=== PATIENT | female | born 1995 | race Caucasian/White ===

== ENCOUNTER → 2016-12-24 | Outpatient (CLI) | payer BC ==
[2016-12-24 14:51] LABS: CH 29.6; CHCM 33.8; HCT 35.2 % (34.0-46.0); HDW 2.47; MCHC 34.1 g/dL (31.0-37.0); Mean Platelet Volume 8.5; RBC 3.99 m/uL (3.80-5.40); RDW 14.1 % (11.5-15.5); WBC 12.7 k/uL (3.8-10.6)
== END | disposition home or self-care (01) ==
LOC: LABWHC1 13:36
PROVIDERS: ATTEND Obstetrics & Gynecology
DX: Z34.92 Encounter for supervision of normal pregnancy, unspecified, second trimester (principal); Z3A.00 Weeks of gestation of pregnancy not specified
CPT/HCPCS: 36415; 82950; 85027

== ENCOUNTER → 2017-03-02 | Outpatient (CLI) | payer BC ==
--- NOTE | 2017-03-02 13:13 | US ---
EXAMINATION TYPE: US OB anatomy transabd DATE OF EXAM: 03/02/2017 11:25 AM COMPARISON: NONE HISTORY: O36.63XO Large for dates 3rd trimester TECHNIQUE: Transabdominal (TA) EXAM MEASUREMENTS: GESTATIONAL AGE / DATING Physician Established: (35 weeks/4 days) EDC: 04/02/2017 Dates by LMP: (35 weeks/4 days) EDC: 04/02/2017 Dates by First Scan: not here Dates by Current Scan for: (35 weeks/2 days) EDC: 04/04/2017 SURVEY IUP: Single PLACENTA: Anterior PREVIA: No previa NOEL: 12.9 cm Normal CERVICAL LENGTH (transabdominal: norm > 3.0cm): 3.4 cm BIOMETRY PRESENTATION: Vertex LIE: Longitudinal with spine maternal right BPD: 8.7 cm 35 weeks / 1 day HC: 31.6 cm 35 weeks / 3 days AC: 32.3 cm 36 weeks / 1 day FL: 7.0 cm 35 weeks / 5 days ESTIMATED WEIGHT IN GRAMS: 2783.0 grams ESTIMATED WEIGHT IN LBS/OZ: 6 lbs. 2 oz. WEIGHT PERCENTAGE BASED ON ESTABLISHED DATE: 57.2 % HC/AC: 0.98 Normal FL/AC: 21.54 Normal HEART RATE: 137 bpm RHYTHM: Normal ANATOMY SEEN (within normal limits): * Lateral Vent (< 1 cm) 0.9 cm Choroid Plexus (bilateral) Cavus Septi Pellucidi Four Chamber Heart Stomach Situs Nose / Lips Diaphragm Kidneys (bilateral) Bladder Three Vessel Cord Longitudinal Spine Transverse Spine Legs (bilateral) ANATOMY NOT SEEN due to bone shadowing and crowding in 3rd trimester... * Cisterna Magna (< 1.1 cm) cm * Nuchal Fold (< 0.6 cm) cm * Cerebellum (varies with age) cm Outflow tracts: LVOT/RVOT Midline Falx as head is low in pelvis Cord Insert Arms (bilateral) Single, live, IUP,35 weeks/2 days, EDC: 04/04/2017, [id number] IMPRESSION: Single intrauterine gestation estimated at 35 weeks 2 days gestation based on the current ultrasound measurements. Some calculated EDC of 04/04/2017, Heart rate measured 137 bpm.
== END | disposition home or self-care (01) ==
LOC: RADUSWWP 10:47
PROVIDERS: ATTEND Obstetrics & Gynecology
DX: O36.63X0 Maternal care for excessive fetal growth, third trimester, not applicable or unspecified (principal); Z3A.35 35 weeks gestation of pregnancy
CPT/HCPCS: 76811

== ENCOUNTER 2017-03-31 05:56 | Inpatient (IN) | payer BC ==
[2017-03-31] MEDS ORDERED: CARBOPROST TROMETHAMINE 250 MCG/ML 1 ML AMP IM PRN (06:06)
[2017-03-31] MEDS ORDERED: LIDOCAINE 1% (PF) 10 MG/ML (30 ML SDV) SQ PRN (06:06)
[2017-03-31] MEDS ORDERED: OXYTOCIN 10 UNIT/ML 1 ML VIAL IM PRN (06:06)
[2017-03-31] MEDS ORDERED: METHYLERGONOVINE 0.2 MG/ML 1 ML AMP IM PRN (06:06)
[2017-03-31] MEDS ORDERED: TERBUTALINE 1 MG/ML VIAL SQ PRN (06:06)
[2017-03-31] MEDS: LACTATED RINGERS 1,000 ML IV SCH ×2 (06:09→09:38)
[2017-03-31] MEDS ORDERED: OXYTOCIN 20 UNITS/1000 ML NS 1,000 ML IV SCH ×2 (06:15→12:15)
[2017-03-31] MEDS ORDERED: LACTATED RINGERS 1,000 ML IV SCH (06:15)
[2017-03-31 06:23] LABS: Basophils % (A) 0 %; CH 29.4; CHCM 34.1; Eosinophils # (A) 0.1 k/uL (0-0.7); Eosinophils % (A) 1 %; HCT 35.9 % (34.0-46.0); HDW 2.39; HGB 12.4 gm/dL (11.4-16.0); Luc # (Auto) 0.16; Luc % (Auto) 1; Lymphocytes # (A) 2.1 k/uL (1.0-4.8); Lymphocytes % (A) 16 %; MCH 29.9 pg (25.0-35.0); MCHC 34.6 g/dL (31.0-37.0); MCV 86.5 fL (80.0-100.0); Mean Platelet Volume 8.4; Monocytes # (A) 0.5 k/uL (0-1.0); Monocytes % (A) 4 %; Neutrophils # (A) 9.8 k/uL (1.3-7.7); Neutrophils % (A) 78 %; RBC 4.15 m/uL (3.80-5.40); RDW 14.7 % (11.5-15.5); WBC 12.6 k/uL (3.8-10.6); WBC (Perox) 13.18
[2017-03-31 07:38] VITALS: BMI 30.9
[2017-03-31] MEDS ORDERED: BENZOCAINE SPRAY 57GM TOPICAL PRN (12:10)
[2017-03-31] MEDS ORDERED: SIMETHICONE 80 MG CHEWABLE PO PRN (12:10)
[2017-03-31] MEDS ORDERED: diphenhydrAMINE 50 MG CAP PO PRN (12:10)
[2017-03-31] MEDS ORDERED: diphenhydrAMINE 25 MG CAP PO PRN (12:10)
[2017-03-31] MEDS ORDERED: HYDROCORTISONE 2.5% RECTAL CREAM 30 GM TUBE RECTAL PRN (12:10)
[2017-03-31] MEDS ORDERED: ACETAMINOPHEN TAB 325 MG TAB PO PRN (12:10)
[2017-03-31] MEDS ORDERED: LANOLIN CREAM 5 GM TUBE TOPICAL PRN (12:10)
[2017-03-31] MEDS ORDERED: diphenhydrAMINE 50 MG/ML 1 ML VIAL IVP PRN ×2 (12:10)
[2017-03-31] MEDS ORDERED: ZOLPIDEM 5 MG TAB PO PRN (12:10)
[2017-03-31] MEDS ORDERED: Acetaminophen-Codeine 300-30mg TAB PO PRN ×2 (12:10)
[2017-03-31] MEDS ORDERED: WITCH HAZEL 1 EACH MED..PAD TOPICAL PRN (12:10)
--- NOTE | 2017-03-31 12:13 | P.HPOB ---
History of Present Illness H&P Date: 03/31/17 Chief Complaint: Induction of labor 21-year-old presents at 39 weeks and 5 days for induction of labor. She had a section with her last for hand presentation at 7 cm. She chose to do the and all risks and benefits and alternatives were discussed with the patient. Her cervix is 4-5 cm dilated, 80% effaced, -2 station. She is derrick every 5 minutes on her own. heart tones 130- 135 with moderate variability and reactive. Review of Systems All systems: negative Constitutional: Denies chills, Denies fever Eyes: denies blurred vision, denies pain Ears, nose, mouth and throat: Denies headache, Denies sore throat Cardiovascular: Denies chest pain, Denies shortness of breath Respiratory: Denies cough Gastrointestinal: Denies abdominal pain, Denies diarrhea, Denies nausea, Denies vomiting Genitourinary: Denies dysuria, Denies hematuria Musculoskeletal: Denies myalgias Integumentary: Denies pruritus, Denies rash Neurological: Denies numbness, Denies weakness Psychiatric: Denies anxiety, Denies depression Endocrine: Denies fatigue, Denies weight change Past Medical History Past Medical History: No Reported History Additional Past Medical History / Comment(s): Obstetrics history: First was a primary for hand presentation she did make it to 7 cm at that time. This is her second and she's had care with me since 7 weeks gestation. Blood type is O+, antibodies negative, rubella immune , RPR nonreactive, hepatitis B negative. Normal 1 hour glucose tolerance test and GBS negative. History of Any Multi-Drug Resistant Organisms: None Reported Past Surgical History: Section, Tonsillectomy Past Anesthesia/Blood Transfusion Reactions: No Reported Reaction Past Psychological History: Depression Additional Psychological History / Comment(s): hx ppd with last preg. was on rx for 4 mos. following Smoking Status: Never smoker Past Alcohol Use History: None Reported Past Drug Use History: None Reported - Past Family History Mother Family Medical History: No Reported History Medications and Allergies Home Medications Medication Instructions Recorded Confirmed Type Iuh-Fboe-Sorpr Acid 1 tab PO DAILY 05/15/14 03/31/17 History [-U Capsule] Allergies Allergy/AdvReac Type Severity Reaction Status Date / Time latex Allergy Rash/Hives Verified 03/31/17 06:05 Exam Osteopathic Statement: *. No significant issues noted on an osteopathic structural exam other than those noted in the History and Physical/Consult. - Vital Signs Vital signs: Vital Signs Temp Pulse Resp BP 03/31/17 07:30 96.3 F L 102 H 16 137/84 Intake and Output 03/30/17 03/31/17 03/31/17 22:59 06:59 14:59 Intake Total 1000 Balance 1000 Intake: IV 1000 Lactated Ringers 1,000 ml 1000 @ 125 mls/hr IV .Q8H [facility] Rx#:[id number] Other: Weight 83.915 kg 81.647 kg Patient Weight 04/01/17 06:59 Weight 81.647 kg Heart: Regular rate and rhythm Lungs: Clear to auscultation bilaterally Abdomen: Soft, nontender Extremities: Negative Homans sign Results Result Diagrams: 03/31/17 06:10 Abnormal Lab Results - Last 24 Hours (Table) 03/31/17 Range/Units 06:10 WBC 12.6 H (3.8-10.6) k/uL Neutrophils # 9.8 H (1.3-7.7) k/uL Assessment and Plan (1) Normal labor Status: Acute Plan: 1. Pitocin and amniotomy for induction of labor 2. Anticipate normal vaginal delivery
--- NOTE | 2017-03-31 12:15 | P.PROBDLV ---
Vaginal Delivery Note - . Vaginal Delivery Note: 21-year-old presents at 39 weeks and 5 days for induction of labor. Her cervix is 4-5 cm dilated, 90% effaced, and -2 station. She is derrick every 5 minutes. heart tones 130-135 with moderate variability and reactive. Amniotomy was performed at 8:00 AM, clear fluid noted. Pitocin had also been started. She progressed to complete at around 10:30 AM, pushed, delivered a viable female over midline episiotomy under epidural anesthesia. Head delivered OA, anterior shoulder delivered gentle downward traction followed by posterior shoulder and rest of body. Nose and mouth bulb suctioned, cord clamped and cut, placed on mother's abdomen. Apgars 8, 9 , weight 8 pounds. Placenta delivered spontaneously, intact with three-vessel cord. Vagina, cervix, perineum inspected. Second-degree midline episiotomy was repaired with 2-0, and 3-0 Vicryl. Bilateral periurethral lacerations were repaired with 3-0 Vicryl. Estimated blood loss 200 mL. Mother and baby in stable condition.
[2017-03-31] MEDS: IBUPROFEN 600 MG TAB PO PRN ×2 (12:49→17:53)
[2017-04-01] MEDS: IBUPROFEN 600 MG TAB PO PRN ×2 (03:30→08:50)
--- NOTE | 2017-04-01 06:21 | P.DS ---
Providers Date of admission: 03/31/17 05:56 Expected date of discharge: 04/01/17 Attending physician: Maria E Sethi Primary care physician: Caryn Doshi - Discharge Diagnosis(es) (1) Normal labor Current Visit: Yes Status: Resolved (2) Vaginal after Current Visit: Yes Status: Acute Hospital Course: Patient presented for induction of labor at 39 weeks and 6 days. She underwent a vaginal after . Her course was uncomplicated. She' ll be discharged home day #1 in stable condition to follow-up with me in 6 weeks. Plan - Discharge Summary New Discharge Prescriptions: Acetaminophen-Codeine 300-30mg [Tylenol w/codeine #3] 2 each PO Q6H PRN #30 tab PRN Reason: Moderate To Severe Pain Ibuprofen [Motrin] 600 mg PO Q6HR PRN #30 tab PRN Reason: Mild Pain Or Fever >= 100.5 Discharge Medication List [id number] Acid [-U Capsule] 1 tab PO DAILY 05/15/14 [ History] Acetaminophen-Codeine 300-30mg [Tylenol w/codeine #3] 2 each PO Q6H PRN #30 tab 04/01/17 [Rx] Ibuprofen [Motrin] 600 mg PO Q6HR PRN #30 tab 04/01/17 [Rx] Follow up Appointment(s)/Referral(s): Maria E Sethi DO [Doctor of Osteopathic Medicine] - 6 Weeks Discharge Disposition: HOME SELF-CARE
[2017-04-01 08:39] VITALS: BP 121/67; PULSE 86; RESP 18; TEMP 98.2
== END 2017-04-01 12:15 | disposition home or self-care (01) | DRG 775 ==
LOC: 4FBP 05:56
PROVIDERS: ADMIT Obstetrics & Gynecology; ATTEND Obstetrics & Gynecology
PROC: 10E0XZZ Delivery of Products of Conception, External Approach (ICD-10-PCS; principal; 2017-03-31)
PROC: 3E033VJ Introduction of Other Hormone into Peripheral Vein, Percutaneous Approach (ICD-10-PCS; principal; 2017-03-31)
PROC: 0UQMXZZ Repair Vulva, External Approach (ICD-10-PCS; principal; 2017-03-31)
PROC: 10907ZC Drainage of Amniotic Fluid, Therapeutic from Products of Conception, Via Natural or Artificial Opening (ICD-10-PCS; principal; 2017-03-31)
PROC: 0W8NXZZ Division of Female Perineum, External Approach (ICD-10-PCS; principal; 2017-03-31)
DX: O71.82 Other specified trauma to perineum and vulva (principal); Z37.0 Single live birth; Z3A.39 39 weeks gestation of pregnancy; O34.211 Maternal care for low transverse scar from previous cesarean delivery
CPT/HCPCS: 85025; 88307

== ENCOUNTER 2019-01-01 10:57 | Emergency (ER) | payer BC, OTHER ==
[2019-01-01 11:14] VITALS: RESP 18
[2019-01-01 11:48] LABS: Glucose,Whole Blood 93 mg/dL (75-99)
[2019-01-01] MEDS ORDERED: SODIUM CHLORIDE 0.9% 1,000 ML IV STA ×2 (11:50)
[2019-01-01] MEDS ORDERED: ACETAMINOPHEN TAB 500 MG TAB PO STA (11:52)
--- NOTE | 2019-01-01 11:57 | ED ---
Syncope HPI - General Chief Complaint: Dizziness Stated Complaint: tunnel vision/tongue numbness Time Seen by Provider: 01/01/19 11:16 Source: patient, RN notes reviewed, old records reviewed Mode of arrival: ambulatory Limitations: no limitations - History of Present Illness Initial Comments: Patient is a 23-year-old female presents emergency department today with complaints of episodes of dizziness tunnel vision and left-sided facial numbness and tingling. She also complained of left arm numbness tingling and weakness. Patient states the symptoms started when she was driving to work today. They went away after about 10 minutes. Patient reports surgeries for dehydration. She denies any chest pain shortness of breath. She's had no recent nausea or vomiting. Patient states that when she arrived here she had another episode of left-sided facial numbness. It has 1 away at this time. Patient complains of a headache 4 out of 10. She denies any falls or head trauma. - Related Data Home Medications Medication Instructions Recorded Confirmed Larissia 1 tab PO HS 01/01/19 01/01/19 Allergies Allergy/AdvReac Type Severity Reaction Status Date / Time latex Allergy Rash/Hives Verified 01/01/19 11:35 Review of Systems ROS Statement: Those systems with pertinent positive or pertinent negative responses have been documented in the HPI. ROS Other: All systems not noted in ROS Statement are negative. Past Medical History Past Medical History: No Reported History Additional Past Medical History / Comment(s): Obstetrics history: First was a primary for hand presentation she did make it to 7 cm at that time. This is her second and she's had care with me since 7 weeks gestation. Blood type is O+, antibodies negative, rubella immune , RPR nonreactive, hepatitis B negative. Normal 1 hour glucose tolerance test and GBS negative. History of Any Multi-Drug Resistant Organisms: None Reported Past Surgical History: Section, Tonsillectomy Past Anesthesia/Blood Transfusion Reactions: No Reported Reaction Past Psychological History: Depression Smoking Status: Never smoker Past Alcohol Use History: None Reported, Rare Past Drug Use History: None Reported - Past Family History Mother Family Medical History: No Reported History General Exam - General Exam Comments Initial Comments: Alert and oriented 23-year-old female in no distress. Limitations: no limitations General appearance: alert, in no apparent distress Head exam: Present: atraumatic, normocephalic, normal inspection Eye exam: Present: normal appearance, PERRL, EOMI. Absent: scleral icterus, conjunctival injection, periorbital swelling ENT exam: Present: normal exam Neck exam: Present: normal inspection. Absent: tenderness, meningismus, lymphadenopathy Respiratory exam: Present: normal lung sounds bilaterally. Absent: respiratory distress, wheezes, rales, rhonchi, stridor Cardiovascular Exam: Present: regular rate, normal rhythm, normal heart sounds. Absent: systolic murmur, diastolic murmur, rubs, gallop, clicks GI/Abdominal exam: Present: soft, normal bowel sounds. Absent: distended, tenderness, guarding, rebound, rigid Extremities exam: Present: normal inspection, full ROM, normal capillary refill. Absent: tenderness, pedal edema, joint swelling, calf tenderness Back exam: Present: normal inspection Neurological exam: Present: alert, oriented X3, CN II-XII intact Expanded Patient oriented to: Present: person, place, time Speech: Present: fluid speech Cranial nerves: EOM's Intact: Normal, Gag Reflex: Normal, Tongue Deviation: Normal, Facial Sensation: Normal Cerebellar function: Finger to Nose: Normal Upper motor neuron: Pronator Drift: Normal Sensory exam: Upper Extremity Light Touch: Normal, Lower Extremity Light Touch: Normal Motor strength exam: RUE: 5, LUE: 5, RLE: 5, LLE: 5 Eye Response: (4) open spontaneously Motor Response: (6) obeys commands Verbal Response: (5) oriented Gurvinder Total: 15 Psychiatric exam: Present: normal affect, normal mood Skin exam: Present: warm, dry, intact, normal color. Absent: rash Course Vital Signs 01/01/19 01/01/19 11:11 13:29 Temperature 99.0 F Pulse Rate 90 77 Respiratory 18 18 Rate Blood Pressure 138/76 138/59 O2 Sat by Pulse 100 98 Oximetry Medical Decision Making - Medical Decision Making Patient is a 23-year-old female process returns today with chief complaint of headache, paresthesias on her hand. She also complains some episodes of tunnel vision. At the same Patient has no neurological deficits. She reports the symptoms are transient. She is complaining of 4 out of 10 headache. At this time patient's labwork was unremarkable. EKG and CT of the brain and chest x- ray are all normal. Discussed possibility of complex migraine versus given T early TIA concerns. Patient was offered transfer for neurological workup and states she will be worked up outpatient only. As discussed that Patient have any returning symptoms that she should return for reevaluation. Patient understands treatment plan will comply. - Lab Data Result diagrams: 01/01/19 11:45 01/01/19 11:45 Lab Results 01/01/19 01/01/19 01/01/19 Range/Units 11:45 11:45 11:45 WBC 6.9 (3.8-10.6) k/uL RBC 4.83 (3.80-5.40) m/uL Hgb 11.9 (11.4-16.0) gm/dL Hct 36.4 (34.0-46.0) % MCV 75.4 L (80.0-100.0) fL MCH 24.6 L (25.0-35.0) pg MCHC 32.7 (31.0-37.0) g/dL RDW 15.5 (11.5-15.5) % Plt Count 242 (150-450) k/uL Neutrophils % 67 % Lymphocytes % 25 % Monocytes % 4 % Eosinophils % 2 % Basophils % 1 % Neutrophils # 4.6 (1.3-7.7) k/uL Lymphocytes # 1.7 (1.0-4.8) k/uL Monocytes # 0.3 (0-1.0) k/uL Eosinophils # 0.1 (0-0.7) k/uL Basophils # 0.0 (0-0.2) k/uL Microcytosis Slight PT 10.2 (9.0-12.0) sec INR 0.9 (<1.2) APTT 26.0 (22.0-30.0) sec Sodium 141 (137-145) mmol/L Potassium 4.0 (3.5-5.1) mmol/L Chloride 105 (98-107) mmol/L Carbon Dioxide 24 (22-30) mmol/L Anion Gap 12 mmol/L BUN 11 (7-17) mg/dL Creatinine 0.66 (0.52-1.04) mg/dL Est GFR (CKD-EPI)AfAm >90 (>60 ml/min/1.73 sqM) Est GFR (CKD-EPI)NonAf >90 (>60 ml/min/1.73 sqM) Glucose 91 (74-99) mg/dL POC Glucose (mg/dL) (75-99) mg/dL POC Glu [employer] ID Calcium 10.2 (8.4-10.2) mg/dL Total Bilirubin 0.7 (0.2-1.3) mg/dL AST 18 (14-36) U/L ALT 26 (9-52) U/L Alkaline Phosphatase 92 (38-126) U/L Troponin I (0.000-0.034) ng/mL Total Protein 8.1 (6.3-8.2) g/dL Albumin 4.6 (3.5-5.0) g/dL Urine Color Urine Appearance (Clear) Urine pH (5.0-8.0) Ur Specific [place] (1.001-1.035) Urine Protein (Negative) Urine Glucose (UA) (Negative) Urine Ketones (Negative) Urine Blood (Negative) Urine Nitrite (Negative) Urine Bilirubin (Negative) Urine Urobilinogen (<2.0) mg/dL Ur Leukocyte Esterase (Negative) Urine RBC (0-5) /hpf Urine WBC (0-5) /hpf Ur Squamous Epith Cells (0-4) /hpf Urine Mucus (None) /hpf Urine HCG, Qual (Not Detectd) 01/01/19 01/01/19 01/01/19 Range/Units 11:45 11:45 11:45 WBC (3.8-10.6) k/uL RBC (3.80-5.40) m/uL Hgb (11.4-16.0) gm/dL Hct (34.0-46.0) % MCV (80.0-100.0) fL MCH (25.0-35.0) pg MCHC (31.0-37.0) g/dL RDW (11.5-15.5) % Plt Count (150-450) k/uL Neutrophils % % Lymphocytes % % Monocytes % % Eosinophils % % Basophils % % Neutrophils # (1.3-7.7) k/uL Lymphocytes # (1.0-4.8) k/uL Monocytes # (0-1.0) k/uL Eosinophils # (0-0.7) k/uL Basophils # (0-0.2) k/uL Microcytosis PT (9.0-12.0) sec INR (<1.2) APTT (22.0-30.0) sec Sodium (137-145) mmol/L Potassium (3.5-5.1) mmol/L Chloride (98-107) mmol/L Carbon Dioxide (22-30) mmol/L Anion Gap mmol/L BUN (7-17) mg/dL Creatinine (0.52-1.04) mg/dL Est GFR (CKD-EPI)AfAm (>60 ml/min/1.73 sqM) Est GFR (CKD-EPI)NonAf (>60 ml/min/1.73 sqM) Glucose (74-99) mg/dL POC Glucose (mg/dL) (75-99) mg/dL POC Glu [employer] ID Calcium (8.4-10.2) mg/dL Total Bilirubin (0.2-1.3) mg/dL AST (14-36) U/L ALT (9-52) U/L Alkaline Phosphatase (38-126) U/L Troponin I <0.012 (0.000-0.034) ng/mL Total Protein (6.3-8.2) g/dL Albumin (3.5-5.0) g/dL Urine Color Light Yellow Urine Appearance Cloudy H (Clear) Urine pH 6.5 (5.0-8.0) Ur Specific [place] 1.005 (1.001-1.035) Urine Protein Negative (Negative) Urine Glucose (UA) Negative (Negative) Urine Ketones Negative (Negative) Urine Blood Negative (Negative) Urine Nitrite Negative (Negative) Urine Bilirubin Negative (Negative) Urine Urobilinogen <2.0 (<2.0) mg/dL Ur Leukocyte Esterase Moderate H (Negative) Urine RBC 2 (0-5) /hpf Urine WBC 14 H (0-5) /hpf Ur Squamous Epith Cells 18 H (0-4) /hpf Urine Mucus Occasional H (None) /hpf Urine HCG, Qual Not Detected (Not Detectd) 01/01/19 Range/Units 11:47 WBC (3.8-10.6) k/uL RBC (3.80-5.40) m/uL Hgb (11.4-16.0) gm/dL Hct (34.0-46.0) % MCV (80.0-100.0) fL MCH (25.0-35.0) pg MCHC (31.0-37.0) g/dL RDW (11.5-15.5) % Plt Count (150-450) k/uL Neutrophils % % Lymphocytes % % Monocytes % % Eosinophils % % Basophils % % Neutrophils # (1.3-7.7) k/uL Lymphocytes # (1.0-4.8) k/uL Monocytes # (0-1.0) k/uL Eosinophils # (0-0.7) k/uL Basophils # (0-0.2) k/uL Microcytosis PT (9.0-12.0) sec INR (<1.2) APTT (22.0-30.0) sec Sodium (137-145) mmol/L Potassium (3.5-5.1) mmol/L Chloride (98-107) mmol/L Carbon Dioxide (22-30) mmol/L Anion Gap mmol/L BUN (7-17) mg/dL Creatinine (0.52-1.04) mg/dL Est GFR (CKD-EPI)AfAm (>60 ml/min/1.73 sqM) Est GFR (CKD-EPI)NonAf (>60 ml/min/1.73 sqM) Glucose (74-99) mg/dL POC Glucose (mg/dL) 93 (75-99) mg/dL POC Glu [employer] Kaylee Ascencio Calcium (8.4-10.2) mg/dL Total Bilirubin (0.2-1.3) mg/dL AST (14-36) U/L ALT (9-52) U/L Alkaline Phosphatase (38-126) U/L Troponin I (0.000-0.034) ng/mL Total Protein (6.3-8.2) g/dL Albumin (3.5-5.0) g/dL Urine Color Urine Appearance (Clear) Urine pH (5.0-8.0) Ur Specific [place] (1.001-1.035) Urine Protein (Negative) Urine Glucose (UA) (Negative) Urine Ketones (Negative) Urine Blood (Negative) Urine Nitrite (Negative) Urine Bilirubin (Negative) Urine Urobilinogen (<2.0) mg/dL Ur Leukocyte Esterase (Negative) Urine RBC (0-5) /hpf Urine WBC (0-5) /hpf Ur Squamous Epith Cells (0-4) /hpf Urine Mucus (None) /hpf Urine HCG, Qual (Not Detectd) 01/01/19 13:48 EKG performed at 12:00 shows normal sinus rhythm with sinus arrhythmia, ventricular rate of 87 bpm.. Intervals 142 ms. QRS duration 80 ms. QT QTc is 350/421 ms. No evidence of ST elevation or T-wave inversions. - Radiology Data Radiology results: report reviewed X-ray was reviewed and normal. CT of brain same for any acute disease. Disposition Clinical Impression: Headache, Paresthesia Disposition: HOME SELF-CARE Condition: Good Instructions (If sedation given, give patient instructions): Acute Headache (ED ) Additional Instructions: Patient is advised to follow-up with primary care physician and neurology. Return to the emergency department if any alarming signs or symptoms occur. Is patient prescribed a controlled substance at d/c from ED?: No Referrals: None,Stated [REFERRING] - 1-2 days Carline Kidd MD [STAFF PHYSICIAN] - 1-2 days Janee Davalos MD [Medical Doctor] - 1-2 days Time of Disposition: 14:03
[2019-01-01 12:16] LABS: Basophils % (A) 1 %; Eosinophils # (A) 0.1 k/uL (0-0.7); Eosinophils % (A) 2 %; HCT 36.4 % (34.0-46.0); HGB 11.9 gm/dL (11.4-16.0); Lymphocytes # (A) 1.7 k/uL (1.0-4.8); Lymphocytes % (A) 25 %; MCH 24.6 pg (25.0-35.0); MCHC 32.7 g/dL (31.0-37.0); MCV 75.4 fL (80.0-100.0); Mean Platelet Volume 7.5; Microcytosis Slight; Monocytes # (A) 0.3 k/uL (0-1.0); Monocytes % (A) 4 %; Neutrophils # (A) 4.6 k/uL (1.3-7.7); Neutrophils % (A) 67 %; Platelet Count 242 k/uL (150-450); RBC 4.83 m/uL (3.80-5.40); RDW 15.5 % (11.5-15.5); WBC 6.9 k/uL (3.8-10.6)
--- NOTE | 2019-01-01 12:24 | XR ---
EXAMINATION TYPE: XR chest 2V DATE OF EXAM: 01/01/2019 COMPARISON: None INDICATION: Altered mental status left-sided numbness TECHNIQUE: Frontal and lateral views of the chest are obtained. FINDINGS: The heart size is normal. The pulmonary vasculature is normal. The lungs are clear. IMPRESSION: 1. No acute pulmonary process.
[2019-01-01 12:25] LABS: ALT 26 U/L (9-52); AST 18 U/L (14-36); Albumin 4.6 g/dL (3.5-5.0); Alkaline Phosphatase 92 U/L (38-126); Anion Gap 12 mmol/L; Blood Urea Nitrogen 11 mg/dL (7-17); Calcium 10.2 mg/dL (8.4-10.2); Carbon Dioxide 24 mmol/L (22-30); Chloride 105 mmol/L (98-107); Glucose 91 mg/dL (74-99); Sodium 141 mmol/L (137-145); Total Bilirubin 0.7 mg/dL (0.2-1.3); Total Protein 8.1 g/dL (6.3-8.2)
[2019-01-01 12:28] LABS: Appearance,Urine Cloudy (Clear); Bilirubin,Urine Negative (Negative); Blood,Urine Negative (Negative); Color,Urine Light Yellow; Glucose,Urine (UA) Negative (Negative); Ketones,Urine Negative (Negative); Leukocyte Esterase,Urine Moderate (Negative); Mucus,Urine Occasional /hpf; Nitrite,Urine Negative (Negative); PH, Urine 6.5 (5.0-8.0); Protein,Urine Negative (Negative); RBC,Urine 2 /hpf (0-5); Specific Gravity,Urine 1.005 (1.001-1.035); Squamous Epithelial Cell,Urine 18 /hpf (0-4); Urobilinogen,Urine <2.0 mg/dL (<2.0); WBC,Urine 14 /hpf (0-5)
[2019-01-01 12:38] LABS: INR 0.9 (<1.2); Prothrombin Time 10.2 sec (9.0-12.0)
--- NOTE | 2019-01-01 13:04 | CT ---
EXAMINATION TYPE: CT brain wo con DATE OF EXAM: 01/01/2019 COMPARISON: None. HISTORY: Headache, tunnel vision and left sided facial numbness. CT DLP: 1091.4 mGycm. Automated Exposure Control for Dose Reduction was Utilized. TECHNIQUE: CT scan of the head is performed without contrast. FINDINGS: There is no acute intracranial hemorrhage, mass effect, or midline shift identified. The ventricles and sulci are within normal limits in size. Olivera-white matter differentiation is preserve d. Air-fluid level right maxillary sinus is partially imaged. Remainder paranasal sinuses are clear. Globes are intact bilaterally. IMPRESSION: No acute intracranial hemorrhage, mass effect, or midline shift is seen.
[2019-01-01 13:31] VITALS: BP 138/59; PULSE 77
[2019-01-01 14:09] VITALS: TEMP 98.9
== END 2019-01-01 14:10 | disposition home or self-care (01) ==
LOC: EC 10:57
DX: R51 Headache (principal); R20.2 Paresthesia of skin; R42 Dizziness and giddiness; R53.1 Weakness; Z79.3 Long term (current) use of hormonal contraceptives; Z91.040 Latex allergy status
CPT/HCPCS: 36415; 70450; 71046; 80053; 81001; 81025; 84484; 85025; 85610; 85730; 93005; 96360; 96361; 99285

== ENCOUNTER 2022-05-15 13:52 | Emergency (ER) | payer OTHER ==
[2022-05-15 14:08] VITALS: TEMP 97.8
[2022-05-15] MEDS ORDERED: ACETAMINOPHEN TAB 500 MG TAB PO STA (14:49)
[2022-05-15 15:17] LABS: Basophils # (A) 0.1 k/uL (0-0.2); Basophils % (A) 1 %; Eosinophils # (A) 0.1 k/uL (0-0.7); Eosinophils % (A) 1 %; HCT 32.2 % (34.0-46.0); HGB 10.7 gm/dL (11.4-16.0); Lymphocytes # (A) 1.5 k/uL (1.0-4.8); Lymphocytes % (A) 14 %; MCH 25.9 pg (25.0-35.0); MCHC 33.3 g/dL (31.0-37.0); MCV 77.7 fL (80.0-100.0); Mean Platelet Volume 7.7; Monocytes # (A) 0.5 k/uL (0-1.0); Monocytes % (A) 4 %; Neutrophils # (A) 8.4 k/uL (1.3-7.7); Neutrophils % (A) 79 %; Platelet Count 206 k/uL (150-450); RBC 4.14 m/uL (3.80-5.40); RDW 15.1 % (11.5-15.5); WBC 10.6 k/uL (3.8-10.6)
[2022-05-15 15:25] LABS: ALT 14 U/L (4-34); AST 18 U/L (14-36); African American GFR (CKD) >90 (>60 ml/min/1.73 sqM); Albumin 4.6 g/dL (3.5-5.0); Alkaline Phosphatase 78 U/L (38-126); Anion Gap 9 mmol/L; Blood Urea Nitrogen 7 mg/dL (7-17); Calcium 9.6 mg/dL (8.4-10.2); Carbon Dioxide 24 mmol/L (22-30); Chloride 101 mmol/L (98-107); Glucose 98 mg/dL (74-99); Non-African American GFR(CKD) >90 (>60 ml/min/1.73 sqM); Potassium 3.8 mmol/L (3.5-5.1); Sodium 134 mmol/L (137-145); Total Bilirubin 0.6 mg/dL (0.2-1.3); Total Protein 7.6 g/dL (6.3-8.2)
[2022-05-15 15:29] LABS: Appearance,Urine Cloudy (Clear); Bilirubin,Urine Negative (Negative); Blood,Urine Negative (Negative); Color,Urine Yellow; Glucose,Urine (UA) Negative (Negative); Ketones,Urine Negative (Negative); Leukocyte Esterase,Urine Moderate (Negative); Mucus,Urine Rare /hpf; Nitrite,Urine Negative (Negative); PH, Urine 5.5 (5.0-8.0); Protein,Urine Negative (Negative); RBC,Urine 2 /hpf (0-5); Specific Gravity,Urine 1.017 (1.001-1.035); Squamous Epithelial Cell,Urine 5 /hpf (0-4); Urobilinogen,Urine <2.0 mg/dL (<2.0); WBC,Urine 10 /hpf (0-5)
--- NOTE | 2022-05-15 16:16 | US ---
EXAMINATION TYPE: Transabdominal DATE OF EXAM: 05/15/2022 4:00 PM COMPARISON: NONE CLINICAL HISTORY: Left sided pelvic pain, 8 weeks . EXAM PERFORMED: Transabdominal (TA) EXAM MEASUREMENTS: GESTATIONAL AGE / DATING Physician Established: (8 weeks/3 days) EDC: 12/22/2022 Dates by LMP: 03/17/2022 (8 weeks/3 days) EDC: 12/22/2022 Dates by First Scan: No previous this is first scan Dates by Current Scan for: (8 weeks/0 days) EDC: 12/25/2022 MATERNAL ANATOMY Uterus: 11.3 X 7.2 X 7.1 CM Right Ovary: 4.8 X 2.8 X 3.3 CM Left Ovary: 3.7 X 2.9 X 3.1 CM Post CDS / Adnexa: no free fluid Presence of free fluid: GESTATION / SURVEY CRL: 1.6 cm (8 weeks/0 days) Yolk Sac (normal less than 6mm): 0.3 cm Heart Rate: 150 bpm Rhythm: Normal IUP: Viable IUP Date of LMP: 03/17/2022 Beta HcG (if available): not available Viable IUP that correlates with LMP. IMPRESSION: Ultrasound gestational age is 8 weeks. No complicating process seen.
--- NOTE | 2022-05-15 16:23 | ED ---
Abdominal Pain HPI - General Chief Complaint: Abdominal Pain Stated Complaint: 8 Weeks Preg. Left Side Abdominal pain Time Seen by Provider: 05/15/22 14:41 Source: patient, RN notes reviewed Mode of arrival: ambulatory Limitations: no limitations - History of Present Illness Initial Comments: This is a 26-year-old female who presents to the emergency department with left- sided pelvic pain. Patient is 8 weeks and is . No history of complications. Denies any vaginal bleeding or discharge. She has not had any issues with morning sickness. Pain started last night. She currently sees Dr. Sethi, and saw her last week. At that time she had blood work and an ultrasound which demonstrated no irregularities. Denies any fevers, chills, sore throat, cough, dyspnea, chest pain, palpitations, nausea, vomiting, diarrhea, back pain, or headaches. MD Complaint: abdominal pain Onset/Timin -: days(s) Location: [facility] - Related Data Home Medications Medication Instructions Recorded Confirmed Vit No.179/Iron/Folic 1 tab PO DAILY 05/15/22 05/15/22 [ Tablet] Previous Rx's Medication Instructions Recorded Cephalexin [Keflex] 500 mg PO Q12HR 3 Days #6 cap 05/15/22 Allergies Allergy/AdvReac Type Severity Reaction Status Date / Time latex Allergy Rash/Hives Verified 05/15/22 16:23 Review of Systems ROS Statement: Those systems with pertinent positive or pertinent negative responses have been documented in the HPI. ROS Other: All systems not noted in ROS Statement are negative. Past Medical History Past Medical History: No Reported History Additional Past Medical History / Comment(s): Obstetrics history: First was a primary for hand presentation she did make it to 7 cm at that time. This is her second and she's had care with me since 7 weeks gestation. Blood type is O+, antibodies negative, rubella immune, RPR nonreactive, hepatitis B negative. Normal 1 hour glucose tolerance test and GBS negative. History of Any Multi-Drug Resistant Organisms: None Reported Past Surgical History: Section, Tonsillectomy Past Anesthesia/Blood Transfusion Reactions: No Reported Reaction Past Psychological History: Depression Past Alcohol Use History: None Reported, Rare Past Drug Use History: None Reported - Past Family History Mother Family Medical History: No Reported History General Exam Limitations: no limitations General appearance: alert, in no apparent distress Respiratory exam: Present: normal lung sounds bilaterally. Absent: respiratory distress, wheezes, rales, rhonchi, stridor Cardiovascular Exam: Present: regular rate, normal rhythm, normal heart sounds. Absent: systolic murmur, diastolic murmur, rubs, gallop, clicks GI/Abdominal exam: Present: normal bowel sounds Neurological exam: Present: alert, oriented X3, CN II-XII intact Psychiatric exam: Present: normal affect, normal mood Skin exam: Present: warm, dry, intact, normal color. Absent: rash Course Vital Signs 05/15/22 05/15/22 14:05 17:26 Temperature 97.8 F Pulse Rate 85 74 Respiratory 16 18 Rate Blood Pressure 135/87 124/82 O2 Sat by Pulse 100 96 Oximetry Medical Decision Making - Medical Decision Making This is a 26-year-old female who presents to the emergency department for left- sided pelvic pain. Lab work was nonactionable. Obstetrics ultrasound revealed a viable intrauterine . She does have some white blood cells in her urine, will treat her with a prescription for Keflex. She was also given a dose of Tylenol and IV fluids. Patient feels stable for discharge home and will follow-up with Dr. Sethi as scheduled. Return precautions reviewed in depth, the patient is instructed to return to the emergency department with any new, worsening, or concerning symptoms. Patient verbalized understanding. This case was discussed in detail with the attending ED physician. Presentation, findings, and treatment plan discussed in detail as well. - Lab Data Result diagrams: 05/15/22 15:05 05/15/22 15:05 Lab Results 05/15/22 05/15/22 05/15/22 Range/Units 15:05 15:05 15:05 WBC 10.6 (3.8-10.6) k/uL RBC 4.14 (3.80-5.40) m/uL Hgb 10.7 L (11.4-16.0) gm/dL Hct 32.2 L (34.0-46.0) % MCV 77.7 L (80.0-100.0) fL MCH 25.9 (25.0-35.0) pg MCHC 33.3 (31.0-37.0) g/dL RDW 15.1 (11.5-15.5) % Plt Count 206 (150-450) k/uL MPV 7.7 Neutrophils % 79 % Lymphocytes % 14 % Monocytes % 4 % Eosinophils % 1 % Basophils % 1 % Neutrophils # 8.4 H (1.3-7.7) k/uL Lymphocytes # 1.5 (1.0-4.8) k/uL Monocytes # 0.5 (0-1.0) k/uL Eosinophils # 0.1 (0-0.7) k/uL Basophils # 0.1 (0-0.2) k/uL Sodium 134 L (137-145) mmol/L Potassium 3.8 (3.5-5.1) mmol/L Chloride 101 (98-107) mmol/L Carbon Dioxide 24 (22-30) mmol/L Anion Gap 9 mmol/L BUN 7 (7-17) mg/dL Creatinine 0.61 (0.52-1.04) mg/dL Est GFR (CKD-EPI)AfAm >90 (>60 ml/min/1.73 sqM) Est GFR (CKD-EPI)NonAf >90 (>60 ml/min/1.73 sqM) Glucose 98 (74-99) mg/dL Calcium 9.6 (8.4-10.2) mg/dL Total Bilirubin 0.6 (0.2-1.3) mg/dL AST 18 (14-36) U/L ALT 14 (4-34) U/L Alkaline Phosphatase 78 (38-126) U/L Total Protein 7.6 (6.3-8.2) g/dL Albumin 4.6 (3.5-5.0) g/dL HCG, Quant 71821.8 mIU/mL Urine Color Yellow Urine Appearance Cloudy H (Clear) Urine pH 5.5 (5.0-8.0) Ur Specific [place] 1.017 (1.001-1.035) Urine Protein Negative (Negative) Urine Glucose (UA) Negative (Negative) Urine Ketones Negative (Negative) Urine Blood Negative (Negative) Urine Nitrite Negative (Negative) Urine Bilirubin Negative (Negative) Urine Urobilinogen <2.0 (<2.0) mg/dL Ur Leukocyte Esterase Moderate H (Negative) Urine RBC 2 (0-5) /hpf Urine WBC 10 H (0-5) /hpf Ur Squamous Epith Cells 5 H (0-4) /hpf Urine Mucus Rare H (None) /hpf - Radiology Data Radiology results: report reviewed, image reviewed Disposition Clinical Impression: Pelvic pain affecting in first trimester, antepartum, Asymptomatic bacteriuria Disposition: HOME SELF-CARE Instructions (If sedation given, give patient instructions): Abdominal Pain in (ED) Additional Instructions: Return to the emergency department for any new, worsening, or concerning symptoms. Take the Keflex as prescribed for [address] Sethi's office on Tuesday for a follow up appointment. Prescriptions: Cephalexin [Keflex] 500 mg PO Q12HR 3 Days #6 cap Is patient prescribed a controlled substance at d/c from ED?: No Referrals: Caryn Doshi MD [Primary Care Provider] - 1-2 days
[2022-05-15 16:44] LABS: HCG,Quantitative Serum 96106.8 mIU/mL
[2022-05-15 17:27] VITALS: BP 124/82; PULSE 74; RESP 18
== END 2022-05-15 17:27 | disposition home or self-care (01) ==
LOC: EC 13:52
DX: O26.91 Pregnancy related conditions, unspecified, first trimester (principal); R10.2 Pelvic and perineal pain; Z91.040 Latex allergy status
CPT/HCPCS: 36415; 76801; 80053; 81001; 84702; 85025; 99284

== ENCOUNTER 2022-12-03 10:40 | Outpatient (CLI) | payer OTHER ==
[2022-12-03 12:09] LABS: Appearance,Urine Cloudy (Clear); Bilirubin,Urine Negative (Negative); Blood,Urine Negative (Negative); Color,Urine Yellow; Glucose,Urine (UA) Negative (Negative); Ketones,Urine Negative (Negative); Leukocyte Esterase,Urine Large (Negative); Mucus,Urine Many /hpf; Nitrite,Urine Negative (Negative); Protein,Urine 1+ (Negative); RBC,Urine <1 /hpf (0-5); Specific Gravity,Urine 1.025 (1.001-1.035); Squamous Epithelial Cell,Urine 17 /hpf (0-4); Urobilinogen,Urine <2.0 mg/dL (<2.0); WBC,Urine 23 /hpf (0-5)
[2022-12-03 12:23] LABS: Creatinine,Urine Random 173.1 mg/dL
[2022-12-03 13:02] LABS: Basophils % (A) 0 %; Eosinophils # (A) 0.1 k/uL (0-0.7); Eosinophils % (A) 1 %; HGB 10.5 gm/dL (11.4-16.0); Lymphocytes # (A) 1.6 k/uL (1.0-4.8); Lymphocytes % (A) 15 %; MCH 27.9 pg (25.0-35.0); MCV 82.2 fL (80.0-100.0); Mean Platelet Volume 9.1; Monocytes # (A) 0.5 k/uL (0-1.0); Monocytes % (A) 4 %; Neutrophils # (A) 8.6 k/uL (1.3-7.7); Neutrophils % (A) 79 %; Platelet Count 161 k/uL (150-450); RBC 3.77 m/uL (3.80-5.40); RDW 14.1 % (11.5-15.5); WBC 10.8 k/uL (3.8-10.6)
[2022-12-03 13:31] LABS: ALT 14 U/L (4-34); AST 16 U/L (14-36); African American GFR (CKD) >90 (>60 ml/min/1.73 sqM); Blood Urea Nitrogen 8 mg/dL (7-17); LDH 335 U/L (313-618); Non-African American GFR(CKD) >90 (>60 ml/min/1.73 sqM); Uric Acid 5.3 mg/dL (3.7-7.4)
[2022-12-03 13:55] VITALS: BP 142/83; PULSE 100; RESP 16; TEMP 97.3
--- NOTE | 2022-12-07 02:08 | P.MSEPDOC ---
Presenting Problems - Arrival Data Date of Arrival on Unit: 12/03/22 Time of Arrival on Unit: 10:40 Mode of Transport: Ambulatory - Complaint OB-Reason for Admission/Chief Complaint: Rule Out SROM Medical History - Information : 3 Para: 2 Term: 1 : 1 Abortions: Spontaneous or Elective: 0 Number of Living Children: 2 - Gestational Age Gestational Age by DAISY (wks/days): 36 Weeks and 3 Days Review of Systems - Review of Systems Constitutional: No problems Breast: No problems ENT: No problems Cardiovascular: No problems Respiratory: No problems Gastrointestinal: No problems Genitourinary: No problems Musculoskeletal: No problems Neurological: No problems Skin: No problems Vital Signs - Temperature Temperature: 97.3 F Temperature Source: Temporal Artery Scan - Pulse Right Sitting Pulse Rate: 100 Pulse Assessment Method: Automatic Cuff - Respirations Respiratory Rate: 16 Oxygen Delivery Method: Room Air - Blood Pressure Right Arm Blood Pressure: 142/83 Blood Pressure Mean: 102 Blood Pressure Source: Automatic Cuff Medical Screen Scoring - Cervical Exam Dilation (cm): 3 Station: -3 Membranes: Intact - Uterine Contractions Intensity: Mild Resting: Soft to palpation - Assessment - Baby A Baseline FHR: 150 Heart Rate - NICHD Category: Category I (Normal) NST: Reactive Physician Notification - Physician Notified Physician Notified Date: 12/03/22 Physician Notified Time: 12:29 Physician: Sergio Bruce Order Received: Yes (d/c home) Maternal Triage Index - Prompt/Priority 3 Prompt Priority 3: Yes Criteria Met for Priority 3: negative amnisure, vag exam same as in office, reactive nst, after initial bps 142/83, and 144/82, bps 120-130's/70-80s, all labs wnl - Non-Urgent/Priority 4 Non-Urgent Priority 4: Yes Criteria Met for Priority 4: see above Disposition - Disposition OB Disposition: Discharge to home Discharge Date: 12/03/22 Discharge Time: 13:45 I agree with the RN Medical Screening Exam: Yes Case reviewed; plan agreed upon as documented in EMR&OBIX.: Yes Diagnosis: FALSE LABOR BEFORE 37 COMPLETED WEEKS OF GEST, THIRD TRI
--- NOTE | 2022-12-07 07:25 | P.MSEPDOC ---
Presenting Problems - Arrival Data Date of Arrival on Unit: 12/03/22 Time of Arrival on Unit: 10:40 Mode of Transport: Ambulatory - Complaint OB-Reason for Admission/Chief Complaint: Rule Out SROM Medical History - Information : 3 Para: 2 Term: 1 : 1 Abortions: Spontaneous or Elective: 0 Number of Living Children: 2 - Gestational Age Gestational Age by DAISY (wks/days): 36 Weeks and 3 Days Review of Systems - Review of Systems Constitutional: No problems Breast: No problems ENT: No problems Cardiovascular: No problems Respiratory: No problems Gastrointestinal: No problems Genitourinary: No problems Musculoskeletal: No problems Neurological: No problems Skin: No problems Vital Signs - Temperature Temperature: 97.3 F Temperature Source: Temporal Artery Scan - Pulse Right Sitting Pulse Rate: 100 Pulse Assessment Method: Automatic Cuff - Respirations Respiratory Rate: 16 Oxygen Delivery Method: Room Air - Blood Pressure Right Arm Blood Pressure: 142/83 Blood Pressure Mean: 102 Blood Pressure Source: Automatic Cuff Medical Screen Scoring - Cervical Exam Dilation (cm): 3 Station: -3 Membranes: Intact - Uterine Contractions Intensity: Mild Resting: Soft to palpation - Assessment - Baby A Baseline FHR: 150 Heart Rate - NICHD Category: Category I (Normal) NST: Reactive Physician Notification - Physician Notified Physician Notified Date: 12/03/22 Physician Notified Time: 12:29 Physician: Sergio Bruce Order Received: Yes (d/c home) Maternal Triage Index - Prompt/Priority 3 Prompt Priority 3: Yes Criteria Met for Priority 3: negative amnisure, vag exam same as in office, reactive nst, after initial bps 142/83, and 144/82, bps 120-130's/70-80s, all labs wnl - Non-Urgent/Priority 4 Non-Urgent Priority 4: Yes Criteria Met for Priority 4: see above Disposition - Disposition OB Disposition: Discharge to home Discharge Date: 12/03/22 Discharge Time: 13:45 I agree with the RN Medical Screening Exam: Yes Case reviewed; plan agreed upon as documented in EMR&OBIX.: Yes Diagnosis: FALSE LABOR AT OR AFTER 37 COMPLETED WEEKS OF GESTATION (Patient was seen and evaluated. There is no evidence of spontaneous rupture membranes however she did have to blood pressures that were elevated. Preeclampsia labs were negative. Serial blood pressures were normal. There is no evidence of preeclampsia or gestational hypertension. Patient was discharged home follow up as scheduled next week in the office.)
== END 2022-12-03 13:45 | disposition home or self-care (01) ==
LOC: FBPOP 10:40
PROVIDERS: ATTEND Obstetrics & Gynecology
DX: O47.1 False labor at or after 37 completed weeks of gestation (principal); Z3A.36 36 weeks gestation of pregnancy; Z91.040 Latex allergy status
CPT/HCPCS: 59025; 81001; 82565; 82570; 83615; 84112; 84156; 84450; 84460; 84520; 84550; 85025; 99215

== ENCOUNTER → 2024-06-04 | Outpatient (CLI) | payer OTHER | END | disposition home or self-care (01) | LOC: LABWHC1 15:58 | PROVIDERS: ATTEND Obstetrics & Gynecology | DX: O20.0 Threatened abortion (principal); Z3A.00 Weeks of gestation of pregnancy not specified | CPT/HCPCS: 36415; 84702; 86850; 86900; 86901 ==

== ENCOUNTER → 2024-06-06 | Outpatient (CLI) | payer OTHER | END | disposition home or self-care (01) | LOC: LABWHC1 09:34 | PROVIDERS: ATTEND Obstetrics & Gynecology | DX: O20.0 Threatened abortion (principal) | CPT/HCPCS: 36415; 84702 ==